=== PATIENT | female | born 1960 ===

== ENCOUNTER 2024-11-27 14:36 | Outpatient (CLI) | payer MEDICARE, SELFPAY | END 2024-11-27 14:37 | disposition home or self-care (01) | PROVIDERS: PCP Family Medicine; Visit Provider Family Medicine | DX: I10 Essential (primary) hypertension (principal); E55.9 Vitamin D deficiency, unspecified; Z13.6 Encounter for screening for cardiovascular disorders; Z13.0 Encounter for screening for diseases of the blood and blood-forming organs and certain disorders involving the immune mechanism; Z13.1 Encounter for screening for diabetes mellitus; Z13.21 Encounter for screening for nutritional disorder | CPT/HCPCS: 80061; 82607 ==